=== PATIENT | male | born 1945 | race Native Hawaiian/Other Pacific Islander ===

== ENCOUNTER 2021-02-19 10:05 | Inpatient (IN) | payer OTHER ==
[~2021-02-19] VITALS: Ht 180.3 cm; Wt 78.0 kg
[~2021-02-19 10:05] MED LIST: ANUSOL-HC25 MG RE; METFORMIN HYD1000 M1 PO; MIDODRINE5 MG PO; NARCAN4 MG/0.1 M NAS; PSYLLIUM PO; SANTYL250 UNIT/G TOP
[2021-02-27 08:28] LABS: PLATELET COUNT 66 K/uL (142-355)
[2021-02-27 08:34] LABS: SODIUM 160 mmol/L (136-145)
[2021-02-27 08:35] LABS: POTASSIUM 7.1 mmol/L (3.6-5.2)
[2021-02-27 08:57] LABS: PLATELET COUNT 62 K/uL (142-355)
[2021-02-27 09:00] LABS: POTASSIUM 6.6 mmol/L (3.6-5.2)
[2021-02-27 09:03] LABS: PLATELET COUNT 105 K/uL (142-355)
[2021-02-27 09:13] LABS: POTASSIUM 7.3 mmol/L (3.6-5.2)
== END 2021-02-19 22:55 | disposition expired | DRG 872 ==
LOC: ICU 10:05
PROVIDERS: ADMIT Internal Medicine; ATTEND Internal Medicine
PROC: 5A12012 Performance of Cardiac Output, Single, Manual (ICD-10-PCS; principal; 2021-02-19)
DX: A41.89 Other specified sepsis (principal); I95.89 Other hypotension; R68.0 Hypothermia, not associated with low environmental temperature; I46.9 Cardiac arrest, cause unspecified
CPT/HCPCS: 36415; 80053; 81000; 82272; 82550; 82553; 83605; 84484; 85027; 87040; 87088; 93005; 94760; J3490